=== PATIENT | female | born 1990 | race Caucasian/White ===

== ENCOUNTER → 2017-09-15 | Outpatient (CLI) | payer BC ==
[2015-06-17 17:14] VITALS: BP 110/68
[~2017-09-15] MED LIST: ALDACTONE 100M100 MG PO
[2017-09-15 11:10] LABS: EOS # 0.4 (0.04-0.40); HEMATOCRIT 45.4 % (37.0-47.0); HEMOGLOBIN 15.2 g/dL (12.5-16.0); LYMPH# 2.5 (1.50-4.00); MEAN CELL VOLUME 90 fl (78-100); MEAN CORPUSCULAR HEMOGLOBIN 30 pg (27-31); MEAN CORPUSCULAR HGB CONC 34 g/dL (33-37); MEAN PLATELET VOLUME 9.8 fl (7.4-10.4); MONO # 0.6 (0.20-0.80); NEU # 3.6 (1.40-6.50); PLATELET COUNT 237 K/mm3 (130-400); RED BLOOD COUNT 5.06 M/mm3 (4.10-5.30); RED CELL DISTRIBUTION WIDTH 11.8 % (11.5-14.5)
[2017-09-15 11:28] LABS: ALBUMIN 4.6 g/dL (3.5-5.0); BUN/CREATININE RATIO 22.4 (6.0-26.0); CALCIUM 9.9 mg/dL (8.4-10.2); POTASSIUM 3.9 mmol/L (3.6-5.0); TOTAL PROTEIN 8.1 g/dL (6.3-8.2)
== END ==
LOC: LAB 10:50
PROVIDERS: Family Medicine
DX: R63.4 Abnormal weight loss (principal)

== ENCOUNTER → 2017-12-08 | Outpatient (CLI) | payer BC ==
[2015-06-17 17:14] VITALS: BP 110/68
== END ==
LOC: RAD 16:02
DX: K11.20 Sialoadenitis, unspecified (principal); R59.0 Localized enlarged lymph nodes

== ENCOUNTER → 2017-12-10 | Outpatient (CLI) | payer BC ==
[2015-06-17 17:14] VITALS: BP 110/68
== END ==
LOC: LAB 13:51
DX: K11.20 Sialoadenitis, unspecified (principal)

== ENCOUNTER → 2022-02-03 | Outpatient (CLI) | payer BC ==
[2022-02-03 17:13] LABS: BASO # 0.05 K/mm3 (0.02-0.10); EOS % 4.7 % (1.0-5.0); HEMATOCRIT 43.8 % (37.0-47.0); HEMOGLOBIN 14.4 g/dL (12.5-16.0); LYMPH# 2.87 K/mm3 (1.50-4.00); MEAN CELL VOLUME 91 fl (78-100); MEAN CORPUSCULAR HEMOGLOBIN 30 pg (27-31); MEAN CORPUSCULAR HGB CONC 33 g/dL (33-37); MEAN PLATELET VOLUME 9.3 fl (7.4-10.4); MONO # 0.58 K/mm3 (0.20-0.80); NEU # 6.64 K/mm3 (1.40-6.50); PLATELET COUNT 361 K/mm3 (130-400); RED BLOOD COUNT 4.79 M/mm3 (4.10-5.30); RED CELL DISTRIBUTION WIDTH 11.4 % (11.5-14.5); WHITE BLOOD COUNT 10.7 K/mm3 (4.8-10.8)
[2022-02-03 17:41] LABS: ALBUMIN 4.3 g/dL (3.5-5.0)
[2022-02-03 17:42] LABS: POTASSIUM 4.1 mmol/L (3.5-5.1)
[2022-02-03 17:43] LABS: CALCIUM 9.9 mg/dL (8.3-10.5)
[2022-02-03 17:44] LABS: TOTAL PROTEIN 7.6 g/dL (6.4-8.3)
[2022-02-03 17:46] LABS: TOTAL BILIRUBIN 0.2 mg/dL (0.2-1.2)
[2022-02-03 18:43] LABS: ERYTHROCYTE SEDIMENTATION RATE 9 mm/hr (0-20)
== END ==
LOC: LAB 16:55
PROVIDERS: Family Medicine
DX: Z00.00 Encounter for general adult medical examination without abnormal findings (principal); N80.9 Endometriosis, unspecified; K64.4 Residual hemorrhoidal skin tags; R53.83 Other fatigue

== ENCOUNTER → 2022-12-09 | Outpatient (CLI) | payer OTHER | LOC: RAD 13:00 | DX: R22.2 Localized swelling, mass and lump, trunk (principal) ==

== ENCOUNTER → 2023-02-23 | Outpatient (CLI) | payer OTHER ==
[2023-02-23 10:51] LABS: BASO # 0.05 K/mm3 (0.02-0.10); EOS # 0.33 K/mm3 (0.04-0.40); EOS % 4.3 % (1.0-5.0); HEMATOCRIT 43.4 % (37.0-47.0); HEMOGLOBIN 14.5 g/dL (12.5-16.0); LYMPH# 2.43 K/mm3 (1.50-4.00); MEAN CELL VOLUME 93 fl (78-100); MEAN CORPUSCULAR HEMOGLOBIN 31 pg (27-31); MEAN CORPUSCULAR HGB CONC 33 g/dL (33-37); MEAN PLATELET VOLUME 9.8 fl (7.4-10.4); MONO # 0.55 K/mm3 (0.20-0.80); NEU # 4.38 K/mm3 (1.40-6.50); PLATELET COUNT 259 K/mm3 (130-400); RED BLOOD COUNT 4.67 M/mm3 (4.10-5.30); RED CELL DISTRIBUTION WIDTH 11.4 % (11.5-14.5); WHITE BLOOD COUNT 7.7 K/mm3 (4.8-10.8)
[2023-02-23 10:54] LABS: ALBUMIN 4.3 g/dL (3.5-5.0); POTASSIUM 3.8 mmol/L (3.5-5.1)
[2023-02-23 10:55] LABS: CALCIUM 9.4 mg/dL (8.3-10.5)
[2023-02-23 10:57] LABS: TOTAL PROTEIN 6.9 g/dL (6.4-8.3)
[2023-02-23 10:58] LABS: TOTAL BILIRUBIN 0.6 mg/dL (0.2-1.2)
[2023-02-23 22:26] LABS: FOLATE (FOLIC ACID) 12.8 ng/mL (2.0-20.0)
== END ==
LOC: LAB 09:54
PROVIDERS: Family Medicine
DX: Z00.00 Encounter for general adult medical examination without abnormal findings (principal); E55.9 Vitamin D deficiency, unspecified; E78.5 Hyperlipidemia, unspecified; R53.83 Other fatigue

== ENCOUNTER → 2023-02-26 | Outpatient (CLI) | payer OTHER | LOC: RAD 09:50 | DX: R22.2 Localized swelling, mass and lump, trunk (principal) | CPT/HCPCS: Q9967 ==

== ENCOUNTER → 2024-03-31 | Outpatient (CLI) | payer OTHER ==
[2024-05-23 11:32] LABS: ALBUMIN 4.6 g/dL (3.5-5.0); CALCIUM 9.7 mg/dL (8.3-10.5); TOTAL BILIRUBIN 0.7 mg/dL (0.2-1.2); TOTAL PROTEIN 7.2 g/dL (6.4-8.3)
[2024-05-23 11:33] LABS: HEMOGLOBIN 15.2 g/dL (12.5-16.0); MEAN PLATELET VOLUME 9.6 fl (7.4-10.4); RED BLOOD COUNT 4.96 M/mm3 (4.10-5.30); RED CELL DISTRIBUTION WIDTH 11.6 % (11.5-14.5); WHITE BLOOD COUNT 6.1 K/mm3 (4.8-10.8)
== END ==
LOC: LAB 10:42
PROVIDERS: Nurse Practitioner
DX: R59.0 Localized enlarged lymph nodes (principal); R53.83 Other fatigue; Z86.39 Personal history of other endocrine, nutritional and metabolic disease

== ENCOUNTER → 2024-12-07 | Outpatient (CLI) | payer OTHER | LOC: LAB 07:52 | DX: E78.5 Hyperlipidemia, unspecified (principal) ==